=== PATIENT | male | born 1950 | race American Indian/Alaskan Native ===

== ENCOUNTER 2020-07-16 22:10 | Emergency (ER) | payer OTHER ==
[2020-07-16 23:46] VITALS: BP 164/105
[2020-07-17 00:12] LABS: Bilirubin,Urine NEG (Negative); Blood,Urine NEG (Negative); Color,Urine Yellow (Yellow); Mucus,Urine FEW /HPF; Urobilinogen,Urine < 2.0 mg/dL (<2.0)
[2020-07-17 00:59] LABS: Basophils # (Auto) 0.1 K/mm3 (0.0-0.1); Eosinophils # (Auto) 0.2 K/mm3 (0.0-0.4); Eosinophils % (Auto) 3.7 % (0.0-4.3); Hematocrit 43.7 % (35.5-45.6); Hemoglobin 14.3 gm/dl (11.8-15.2); Lymphocytes # (Auto) 1.4 K/mm3 (1.2-5.4); Lymphocytes % (Auto) 23.1 % (13.4-35.0); Mean Corpuscular HGB Conc 33 % (32-34); Mean Corpuscular Volume 90 fl (84-94); Monocytes # (Auto) 0.6 K/mm3 (0.0-0.8); Monocytes % (Auto) 10.5 % (0.0-7.3); Platelet Count 300 K/mm3 (140-440); Red Blood Count 4.85 M/mm3 (3.65-5.03); Red Cell Distribution Width 16.1 % (13.2-15.2)
[2020-07-17 01:16] LABS: BUN/Creatinine Ratio 20; Blood Urea Nitrogen 16 mg/dL (9-20); Calcium 9.9 mg/dL (8.4-10.2); Hemolysis Index 8
--- NOTE | 2020-07-17 08:17 | Emergency Department Report ---
ED General Adult HPI - General Chief complaint: Altered Mental Status Stated complaint: ALTERED MENTAL STATUS Time Seen by Provider: 07/17/20 07:24 Source: patient Mode of arrival: Stretcher Limitations: No Limitations - History of Present Illness Initial comments: This is a 70-year-old male in no apparent distress . He is pleasant and cooperative he denies any medical complaints. Patient is hard of hearing. He states that he lives with his brother and his [id number]. Patient states that his [id number] has been trying to get rid of him and she called the ambulance to take him to the hospital. He currently reports no medical problems he denies chest pain,shortness of breath, he denies any URI symptoms. Patient states when he leaves here he wants to go to live with his family in [place] he is only concern right now is locating his suitcase with his belongings. Improves with: none Worsens with: none Associated Symptoms: denies other symptoms Treatments Prior to Arrival: none - Related Data Allergies Allergy/AdvReac Type Severity Reaction Status Date / Time No Known Allergies Allergy Unverified 07/16/20 23:56 ED Review of Systems ROS: Stated complaint: ALTERED MENTAL STATUS Other details as noted in HPI Comment: All other systems reviewed and negative Constitutional: no symptoms reported Respiratory: no symptoms reported. denies: SOB with exertion, wheezing Cardiovascular: denies: chest pain, edema, syncope, paroxysmal nocturnal dyspnea Endocrine: no symptoms reported Gastrointestinal: denies: abdominal pain, diarrhea, constipation, hematemesis ED Past Medical Hx - Past Medical History Previous Medical History?: Yes Hx Psychiatric Treatment: Yes (Sleep walking) - Surgical History Past Surgical History?: No - Social History Smoking Status: Former Smoker Substance Use Type: None ED Physical Exam - General Limitations: No Limitations General appearance: alert, in no apparent distress, other - Head Head exam: Present: atraumatic - Eye Eye exam: Present: normal appearance - ENT ENT exam: Present: normal exam (Hard of hearing), mucous membranes moist - Neck Neck exam: Present: normal inspection - Respiratory Respiratory exam: Present: normal lung sounds bilaterally - Cardiovascular Cardiovascular Exam: Present: regular rate, normal heart sounds - GI/Abdominal GI/Abdominal exam: Present: soft. Absent: distended - Rectal Rectal exam: Present: deferred - Extremities Exam Extremities exam: Present: normal inspection - Back Exam Back exam: Present: normal inspection - Neurological Exam Neurological exam: Present: alert, oriented X3, normal gait - Psychiatric Psychiatric exam: Present: normal affect - Skin Skin exam: Present: warm, dry, intact ED Course Vital Signs 07/16/20 23:21 Temperature 98.0 F Pulse Rate 87 Respiratory 20 Rate Blood Pressure 164/105 O2 Sat by Pulse 95 Oximetry - Reevaluation(s) Reevaluation #1: 07/17/20 10:30 am I called patient's elizabeth Lovelace at [phone] date. Her uncle has been getting increasingly forgetful he attempt to brush his teeth with soap and he is leaving the doors open at her home she states that she cannot take care of him she did she is not able to care for him. 07/17/20 10:46 Reevaluation #2: 07/17/20 10:46 Nurse reported that patient is not in his room and currently is currently searching for patient in the ER. 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 She plan to follow-up at the [facility] for further evaluation and treatment ED Medical Decision Making - Lab Data Result diagrams: 07/17/20 00:17 07/17/20 00:17 - Medical Decision Making 70-year-old male sent to the emergency room by his family because he has been having episodes of forgetfulness at home. patient is in no distress he has no medical complaints he is alert awake and oriented x3. He has no signs of trauma it is noted that he is slightly hard of hearing .his blood work is within normal limits patient has no complaint. Patient believes everything is fine. I have had discussion with patient's elizabeth Contreras who he resides with. She reports that she finds him pleasant cooperative but at times forgetful. I have explained to her that that is something that should be worked up outpatient with his primary care doctor or at the [facility] or with the referral that I have given her Dr. Bernard Critical Care Time: No Critical care attestation.: If time is entered above; I have spent that time in minutes in the direct care of this critically ill patient, excluding procedure time. ED Disposition Clinical Impression: Domestic concerns Disposition: DC-01 TO HOME OR SELFCARE Is pt being admited?: No Does the pt Need Aspirin: No Condition: Stable Additional Instructions: Please follow-up with your primary care doctor I have also given you follow-up with Dr. [facility] Referrals: PRIMARY MD RADHA [Primary Care Provider] - 3-5 Days KERRIE BERNARD MD [Staff Physician] - 3-5 Days Time of Disposition: 13:21
== END 2020-07-17 14:35 | disposition home or self-care (01) ==
LOC: ED 22:10
DX: R41.82 Altered mental status, unspecified (principal); Z63.6 Dependent relative needing care at home
CPT/HCPCS: 36415; 80048; 81001; 85025